=== PATIENT | male | born 1935 | race Caucasian/White ===

== ENCOUNTER → 2018-06-25 | Day surgery (SDC) | payer MEDICARE, OTHER ==
[~2018-06-25] VITALS: Ht 170.1 cm; Wt 78.0 kg
[~2018-06-25] MED LIST: BAYER ASPIRIN C81 MG PO
--- NOTE | ~2018-06-25 | O ---
[place], [place] OPERATIVE NOTE NAME: [id number] UNIT #: [id number] ROOM: DOCTOR: DEBRA SOLORIO MD BIRTHDATE: 37 DOS: 06/25/2018 PREOPERATIVE DIAGNOSIS: Cataract, left eye. POSTOPERATIVE DIAGNOSIS: Cataract, left eye. OPERATION: Extracapsular cataract extraction by phacoemulsification with posterior chamber intraocular lens implantation, left eye. ANESTHESIA: Monitored standby. OPERATIVE FINDINGS AND PROCEDURE: 2% Xylocaine topical anesthetic gel was applied to the eye in the preop area. The patient was taken to the operating room and prepped and draped in the standard fashion for sterile intraocular surgery. A time out procedure was performed verifying correct patient, correct site and corrects lens with John Solorio M.D. The operating microscope was swung into position and the lid speculum was inserted. Using a Kaylynn paracentesis blade, a paracentesis was made through clear cornea. Viscoelastic was used to fill the anterior chamber. Using a metal keratome a 2.4 mm self-sealing clear corneal cataract incision was made temporally at the limbus. Using a pre-bent 25 gauge cystotome needle, a standard continuous curvilinear capsulorrhexis was performed. The anterior capsule was removed with forceps. The lens nucleus was hydrodissected and phacoemulsified in the posterior chamber. Cortical material was removed with the irrigation aspiration hand piece and the posterior capsule was then polished with a curet under irrigation. The posterior chamber and capsular bag were filled with viscoelastic. A posterior chamber intraocular lens manufactured by: [employer], Model #[id number], and 21.5 diopters in strength were then inserted into the posterior chamber and within the capsular bag using the lens cartridge and injector system. Viscoelastic was removed using the irrigation aspiration handpiece. The anterior chamber was filled with balanced salt solution through the paracentesis. Both the paracentesis site and cataract incisions were hydrated with BSS and verified to be water-tight and self-sealing. Cefuroxime 1 mg/0.1 mL was injected into the anterior chamber through the paracentesis site. The incision checked to be water-tight using a Weck-Danita sponge. The integrity of the cataract wound and ocular tension were checked. Lid speculum and drapes were removed. The patient was transferred from the operating room to the recovery room in satisfactory condition. [place], [place] OPERATIVE NOTE NAME: NATALI HARRIS UNIT #: [id number] ROOM: DOCTOR: DEBRA SOLORIO MD BIRTHDATE: [birth year] DEBRA SOLORIO MD CM:OPRECORD:OPERATIVE NOTE [id number] DEBRA SOLORIO MD 06/25/18 1242 interface
[2018-06-25 11:00] VITALS: BP 140/73
[2018-06-25 12:21] VITALS: BP 140/73
[2018-06-25 12:35] VITALS: BP 136/65
[2018-06-25 12:45] VITALS: BP 141/69
== END | disposition home or self-care (01) ==
LOC: SDC 06-23 13:15
DX: H25.812 Combined forms of age-related cataract, left eye (principal); Z86.73 Personal history of transient ischemic attack (TIA), and cerebral infarction without residual deficits; Z87.891 Personal history of nicotine dependence; Z98.890 Other specified postprocedural states; Z79.82 Long term (current) use of aspirin

== ENCOUNTER → 2018-07-02 | Day surgery (SDC) | payer MEDICARE, OTHER ==
[~2018-07-02] VITALS: Ht 170.1 cm; Wt 78.5 kg
--- NOTE | ~2018-07-02 | O ---
[place], [place] OPERATIVE NOTE NAME: NAT[facility]I [facility]IS [facility] [id number] UNIT #: [id number] ROOM: DOCTOR: DEBRA SOLORIO MD BIRTHDATE: [birth year] DOS: 07/02/2018 PREOPERATIVE DIAGNOSIS: Cataract, right eye. POSTOPERATIVE DIAGNOSIS: Cataract, right eye. OPERATION: Extracapsular cataract extraction by phacoemulsification with posterior chamber intraocular lens implantation, right eye. ANESTHESIA: Monitored standby. OPERATIVE FINDINGS AND PROCEDURE: 2% Xylocaine topical anesthetic gel was applied to the eye in the preop area. The patient was taken to the operating room and prepped and draped in the standard fashion for sterile intraocular surgery. A time out procedure was performed verifying correct patient, correct site and corrects lens with John Solorio M.D. The operating microscope was swung into position and the lid speculum was inserted. Using a Kaylynn paracentesis blade, a paracentesis was made through clear cornea. Viscoelastic was used to fill the anterior chamber. Using a metal keratome a 2.4 mm self-sealing clear corneal cataract incision was made temporally at the limbus. Using a pre-bent 25 gauge cystotome needle, a standard continuous curvilinear capsulorrhexis was performed. The anterior capsule was removed with forceps. The lens nucleus was hydrodissected and phacoemulsified in the posterior chamber. Cortical material was removed with the irrigation aspiration hand piece and the posterior capsule was then polished with a curet under irrigation. The posterior chamber and capsular bag were filled with viscoelastic. A posterior chamber intraocular lens manufactured by: [employer], Model #[id number], and 21.0 diopters in strength were then inserted into the posterior chamber and within the capsular bag using the lens cartridge and injector system. Viscoelastic was removed using the irrigation aspiration handpiece. The anterior chamber was filled with balanced salt solution through the paracentesis. Both the paracentesis site and cataract incisions were hydrated with BSS and verified to be water-tight and self-sealing. Cefuroxime 1 mg/0.1 mL was injected into the anterior chamber through the paracentesis site. The incision checked to be water-tight using a Weck-Danita sponge. The integrity of the cataract wound and ocular tension were checked. Lid speculum and drapes were removed. The patient was transferred from the operating room to the recovery room in satisfactory condition. [place], [place] OPERATIVE NOTE NAME: NATALI HARRIS UNIT #: [id number] ROOM: DOCTOR: DEBRA SOLORIO MD BIRTHDATE: [birth year] DEBRA SOLORIO MD CM:OPRECORD:OPERATIVE NOTE [id number] DEBRA SOLORIO MD 07/02/18 1140 interface
[2018-07-02 08:50] VITALS: BP 127/65
[2018-07-02 10:19] VITALS: BP 136/74
[2018-07-02 10:35] VITALS: BP 133/77
[2018-07-02 10:45] VITALS: BP 118/67
== END | disposition home or self-care (01) ==
LOC: SDC 07-01 11:45
DX: H25.811 Combined forms of age-related cataract, right eye (principal); Z98.42 Cataract extraction status, left eye; Z96.1 Presence of intraocular lens; Z86.73 Personal history of transient ischemic attack (TIA), and cerebral infarction without residual deficits; Z98.890 Other specified postprocedural states; Z79.82 Long term (current) use of aspirin

== ENCOUNTER 2020-02-21 16:22 | Emergency (ER) | payer MEDICARE, OTHER ==
[~2020-02-21] VITALS: Ht 172.7 cm; Wt 77.1 kg
[2020-02-21 17:43] LABS: ALBUMIN 3.4 gm/dl (3.1-4.5); ALKALINE PHOSPHATASE 95 U/L (45-117); BUN 24 mg/dl (7-24); CHLORIDE 106 mmol/L (98-107); CREATININE 1.17 mg/dL (0.70-1.30); HEMATOCRIT 45.5 % (42.0-52.0); MEAN CELL VOLUME 89.7 fl (80.0-94.0); MEAN CORPUSCULAR HGB 28.6 pg (27.0-31.0); MEAN CORPUSCULAR HGB CONC 31.9 g/dl (33.0-37.0); MEAN PLATELET VOLUME 9.9 fl (9.6-12.3); PLATELET COUNT AUTOMATED 228 10*3/uL (130-400); POTASSIUM 4.3 mmol/L (3.5-5.1); RED BLOOD COUNT 5.07 10*6/uL (4.50-5.90); RED CELL DISTRI WIDTH 14.4 % (0-14.5); SGOT/AST 11 IU/L (3-35); SGPT/ALT 18 U/L (12-78); SODIUM 138 mmol/L (136-145); TOTAL PROTEIN 8.1 gm/dL (6.4-8.2); WHITE BLOOD COUNT 9.8 10*3/uL (4.8-10.8)
[2020-02-21 17:44] LABS: TROPONIN I < 0.015 ng/ml (<0.045)
[2020-02-21 18:03] LABS: BASOPHILS 1 % (0-1); PLATELET SUFFICIENCY NORMAL (NORMAL); TOTAL CELLS COUNTED 100 #CELLS
== END 2020-02-21 18:50 | disposition home or self-care (01) ==
LOC: ED 16:22
PROVIDERS: Nurse Practitioner Family
DX: M54.9 Dorsalgia, unspecified (principal); Z79.82 Long term (current) use of aspirin

== ENCOUNTER 2021-06-07 11:20 | Emergency (ER) | payer MEDICARE ==
[2021-06-07] MEDS ORDERED: FLOMAX0.4 MG PO (15:27)
== END 2021-06-07 16:43 | disposition home or self-care (01) ==
LOC: ED 11:20
DX: R33.9 Retention of urine, unspecified (principal)

== ENCOUNTER 2021-06-15 07:12 | Emergency (ER) | payer MEDICARE ==
[~2021-06-15] VITALS: Ht 170.1 cm; Wt 70.8 kg
[~2021-06-15 07:12] MED LIST changes: +FLOMAX0.4 MG PO
== END 2021-06-15 08:47 | disposition home or self-care (01) ==
LOC: ED 07:12
DX: R33.9 Retention of urine, unspecified (principal)

== ENCOUNTER 2021-06-20 22:03 | Emergency (ER) | payer MEDICARE ==
[~2021-06-20] VITALS: Ht 170.1 cm; Wt 71.2 kg
[2021-06-21 00:11] LABS: BILIRUBIN Negative (Negative); BLOOD 3+ (Negative); CLARITY Cloudy (Clear); COLOR Yellow (Yellow); GLUCOSE Negative (Negative); KETONE Negative (Negative); LEUKO ESTERASE Negative (Negative); NITRITE Negative (Negative); SPECIFIC GRAVITY 1.015 (1.001-1.030); UROBILINOGEN 0.2 E.U./dl (0.0-1.0)
[2021-06-21 00:22] LABS: URIC ACID CRYSTALS 2+
[2021-06-21 00:23] LABS: RBC 41-50 rbc/hpf (0-2)
== END 2021-06-21 01:24 | disposition home or self-care (01) ==
LOC: ED 22:03
PROVIDERS: Emergency Medicine
DX: T83.098A Other mechanical complication of other urinary catheter, initial encounter (principal); Y92.89 Other specified places as the place of occurrence of the external cause

== ENCOUNTER 2024-01-27 18:47 | Inpatient (IN) | payer MEDICARE ==
[2024-01-27] VITALS: BP 121/53
[~2024-01-27] VITALS: Ht 167.6 cm; Wt 78.6 kg
[~2024-01-27 18:47] MED LIST changes: +OMNICEF300 MG PO; +PHARMASSURE V500 MCG PO; +TAMSULOSIN HCL0.4 MG PO; +VITAMIN D350 MCG PO; +ZITHROMAX250 MG PO
[2024-01-27 18:56] VITALS: BP 142/64
[2024-01-27 20:00] VITALS: BP 121/53
[2024-01-27] MEDS ORDERED: Ipratropium Brom3 ML INH (21:00)
[2024-01-27] MEDS ORDERED: Lidocaine Hydrochloride 10 ML SYR UR ONE (22:05)
[2024-01-27 22:25] LABS: BILIRUBIN Negative (Negative); BLOOD 3+ (Negative); CLARITY Cloudy (Clear); COLOR Yellow (Yellow); GLUCOSE Negative (Negative); KETONE Negative (Negative); LEUKO ESTERASE Trace (Negative); NITRITE Negative (Negative)
[2024-01-27] MEDS ORDERED: LEVOFLOXACIN 150 ML IV ONE (22:25)
[2024-01-27 22:51] LABS: RBC 41-50 rbc/hpf (0-2); URIC ACID CRYSTALS 1+
[2024-01-27 22:52] LABS: BACTERIA TRACE; WBC 16-20 wbc/hpf (0-5)
[2024-01-27] MEDS ORDERED: SODIUM CHLORIDE 0.9% 1,000 ML IV ONE (22:55)
[2024-01-27 23:21] LABS: HEMATOCRIT 34.4 % (42.0-52.0); MEAN CELL VOLUME 84.9 fl (80.0-94.0); MEAN CORPUSCULAR HGB 26.9 pg (27.0-31.0); MEAN CORPUSCULAR HGB CONC 31.7 g/dl (33.0-37.0); MEAN PLATELET VOLUME 9.4 fl (9.6-12.3); PLATELET COUNT AUTOMATED 373 10*3/uL (130-400); RED BLOOD COUNT 4.05 10*6/uL (4.50-5.90); RED CELL DISTRI WIDTH 14.8 % (0-14.5); WHITE BLOOD COUNT 20.3 10*3/uL (4.8-10.8)
[2024-01-27 23:39] LABS: MANUAL DIFF REFLEX YES
[2024-01-27 23:48] LABS: PLATELET SUFFICIENCY NORMAL (NORMAL); TOTAL CELLS COUNTED 100 #CELLS
[2024-01-28] VITALS (9 sets, daily range): BP systolic 103–133; BP diastolic 53–66
[2024-01-28] MEDS ORDERED: LEVOFLOXACIN 150 ML IV ONE
[2024-01-28] MEDS ORDERED: BISACODYL 5 MG TAB PO PRN (02:05)
[2024-01-28] MEDS ORDERED: ACETAMINOPHEN 325 MG TAB PO PRN (02:05)
[2024-01-28] MEDS ORDERED: Magnesium Hydroxide 30 ML UDC PO PRN (02:05)
[2024-01-28] MEDS ORDERED: ACETAMINOPHEN 650 MG SUPP R PRN (02:05)
[2024-01-28] MEDS ORDERED: BISACODYL 10 MG SUPP R PRN (02:05)
[2024-01-28] MEDS ORDERED: Ondansetron Hydrochloride 4 MG/2 ML VIAL IV PRN (02:05)
[2024-01-28] MEDS ORDERED: SODIUM CHLORIDE 0.9% 1,000 ML IV ONE (02:10)
[2024-01-28] MEDS ORDERED: Vancomycin Hydrochloride 1,000 MG in SODIUM CHLORIDE 0.9% 250 ML IV SCH (02:10)
[2024-01-28] MEDS ORDERED: DEXTROSE IV ONE (02:25)
[2024-01-28] MEDS ORDERED: TAZOBACTAM IV ONE (02:25)
[2024-01-28] MEDS ORDERED: PIPERACILLIN IV ONE (02:25)
[2024-01-28] MEDS ORDERED: Albuterol Sulf/Ipratropium 3 ML VIAL NEB PRN (02:30)
[2024-01-28] MEDS ORDERED: VANCOMYCIN HCL 1,500 MG in SODIUM CHLORIDE 0.9% 500 ML IV ONE (04:00)
[2024-01-28] MEDS ORDERED: Piperacillin Sodium/Tazobact 50 ML IV ONE (04:07)
[2024-01-28 06:33] LABS: HEMATOCRIT 29.9 % (42.0-52.0); MEAN CELL VOLUME 84.7 fl (80.0-94.0); MEAN CORPUSCULAR HGB 26.9 pg (27.0-31.0); MEAN CORPUSCULAR HGB CONC 31.8 g/dl (33.0-37.0); MEAN PLATELET VOLUME 9.2 fl (9.6-12.3); PLATELET COUNT AUTOMATED 306 10*3/uL (130-400); RED BLOOD COUNT 3.53 10*6/uL (4.50-5.90); RED CELL DISTRI WIDTH 15.1 % (0-14.5); WHITE BLOOD COUNT 15.5 10*3/uL (4.8-10.8)
[2024-01-28 06:37] LABS: MANUAL DIFF REFLEX YES
[2024-01-28 07:07] LABS: ALKALINE PHOSPHATASE 191 U/L (46-116); BUN 31 mg/dl (9-23); CHLORIDE 110 mmol/L (98-107); POTASSIUM 3.7 mmol/L (3.4-5.1); SGPT/ALT 40 U/L (5-49); TOTAL PROTEIN 4.9 gm/dL (6.0-8.0)
[2024-01-28 07:40] LABS: TOTAL CELLS COUNTED 100 #CELLS
[2024-01-28 07:41] LABS: PLATELET SUFFICIENCY NORMAL (NORMAL)
[2024-01-28] MEDS ORDERED: Vancomycin Hydrochloride 500 MG VIAL IV ONE (09:06)
[2024-01-28] MEDS ORDERED: SODIUM CHLORIDE 0.9% 500 ML BAG IV ONE (09:06)
[2024-01-28] MEDS ORDERED: Vancomycin Hydrochloride 1,000 MG VIAL IV ONE (09:06)
[2024-01-28] MEDS ORDERED: Enoxaparin Sodium 40 MG/0.4 ML SYR SC SCH (10:00)
[2024-01-28] MEDS ORDERED: CYANOCOBALAMIN 500 MCG TAB PO SCH (10:00)
[2024-01-28] MEDS ORDERED: Tamsulosin Hydrochloride 0.4 MG CAP PO SCH (10:00)
[2024-01-28] MEDS ORDERED: Cholecalciferol 2,000 UNIT TABLET (50 MCG) PO SCH (10:00)
[2024-01-28] MEDS ORDERED: Piperacillin Sodium/Tazobact 50 ML IV SCH (10:00)
[2024-01-28] MEDS ORDERED: BARIUM SULFATE 98% 340 GM BOT PO ONE ×2 (12:40→12:57)
[2024-01-29] VITALS: BP 127/52
[2024-01-29] MEDS ORDERED: HEEL PROTECTOR DEVICE ONE (03:23)
[2024-01-29] MEDS ORDERED: CHAIR CUSHION DEVICE ONE (03:23)
[2024-01-29] MEDS ORDERED: FOAM BANDAGE 1 EACH BANDAGE T ONE (03:23)
[2024-01-29] MEDS ORDERED: Vancomycin Hydrochloride 1,000 MG in SODIUM CHLORIDE 0.9% 250 ML IV SCH (06:00)
[2024-01-29 06:14] LABS: BUN 27 mg/dl (9-23); CHLORIDE 110 mmol/L (98-107); POTASSIUM 3.9 mmol/L (3.4-5.1)
[2024-01-29 06:21] LABS: HEMATOCRIT 33.4 % (42.0-52.0); MEAN CORPUSCULAR HGB 27.1 pg (27.0-31.0); MEAN CORPUSCULAR HGB CONC 31.1 g/dl (33.0-37.0); MEAN PLATELET VOLUME 9.3 fl (9.6-12.3); RED BLOOD COUNT 3.84 10*6/uL (4.50-5.90); RED CELL DISTRI WIDTH 15.2 % (0-14.5); WHITE BLOOD COUNT 19.3 10*3/uL (4.8-10.8)
[2024-01-29 06:32] LABS: MANUAL DIFF REFLEX YES
[2024-01-29 07:04] LABS: PLATELET COUNT AUTOMATED 413 10*3/uL (130-400)
[2024-01-29 07:24] LABS: TOTAL CELLS COUNTED 100 #CELLS
[2024-01-29 07:25] LABS: BURR CELLS FEW; PLATELET SUFFICIENCY HIGH (NORMAL)
[2024-01-29 08:00] VITALS: BP 128/55
[2024-01-29] MEDS ORDERED: ASPIRIN, CHEWABLE 81 MG TAB PO SCH (10:00)
[2024-01-29 12:00] VITALS: BP 123/50
[2024-01-29 16:00] VITALS: BP 122/52
[2024-01-29 20:00] VITALS: BP 128/70
[2024-01-30] VITALS: BP 121/53
[2024-01-30] MEDS ORDERED: LEVOFLOXACIN 150 ML IV SCH
[2024-01-30 05:37] LABS: BUN 27 mg/dl (9-23); CHLORIDE 107 mmol/L (98-107); POTASSIUM 3.6 mmol/L (3.4-5.1)
[2024-01-30 06:02] LABS: HEMATOCRIT 30.1 % (42.0-52.0); MEAN CELL VOLUME 84.3 fl (80.0-94.0); MEAN CORPUSCULAR HGB 26.9 pg (27.0-31.0); MEAN CORPUSCULAR HGB CONC 31.9 g/dl (33.0-37.0); MEAN PLATELET VOLUME 9.3 fl (9.6-12.3); PLATELET COUNT AUTOMATED 385 10*3/uL (130-400); RED BLOOD COUNT 3.57 10*6/uL (4.50-5.90); RED CELL DISTRI WIDTH 15.1 % (0-14.5); WHITE BLOOD COUNT 17.5 10*3/uL (4.8-10.8)
[2024-01-30 06:07] LABS: MANUAL DIFF REFLEX YES
[2024-01-30 06:54] LABS: PLATELET SUFFICIENCY NORMAL (NORMAL); STOMATOCYTE FEW; TOTAL CELLS COUNTED 100 #CELLS
[2024-01-30 08:00] VITALS: BP 116/56
[2024-01-30 16:00] VITALS: BP 110/44
[2024-01-30 20:00] VITALS: BP 110/55
[2024-01-31] VITALS: BP 109/52
[2024-01-31 06:12] LABS: BUN 28 mg/dl (9-23); CHLORIDE 108 mmol/L (98-107); HEMATOCRIT 31.3 % (42.0-52.0); MEAN CELL VOLUME 86.7 fl (80.0-94.0); MEAN CORPUSCULAR HGB 26.3 pg (27.0-31.0); MEAN CORPUSCULAR HGB CONC 30.4 g/dl (33.0-37.0); MEAN PLATELET VOLUME 9.2 fl (9.6-12.3); PLATELET COUNT AUTOMATED 398 10*3/uL (130-400); POTASSIUM 3.6 mmol/L (3.4-5.1); RED BLOOD COUNT 3.61 10*6/uL (4.50-5.90); WHITE BLOOD COUNT 15.3 10*3/uL (4.8-10.8)
[2024-01-31 06:30] LABS: MANUAL DIFF REFLEX YES
[2024-01-31 07:59] LABS: ATYPICAL LYMPHS 1 % (0-0); PLATELET SUFFICIENCY NORMAL (NORMAL); TOTAL CELLS COUNTED 100 #CELLS
[2024-01-31 08:00] VITALS: BP 160/82
[2024-01-31 12:00] VITALS: BP 138/64
[2024-01-31] MEDS ORDERED: Piperacillin Sodium/Tazobact 50 ML IV SCH (14:00)
[2024-01-31 16:00] VITALS: BP 120/64
[2024-01-31] MEDS ORDERED: VANCOMYCIN/WATER FOR INJ (PEG) 250 ML IV SCH (18:00)
[2024-01-31 20:00] VITALS: BP 109/51
[2024-02-01] VITALS: BP 119/60
[2024-02-01 08:00] VITALS: BP 126/50
[2024-02-01 09:52] LABS: HEMATOCRIT 30.4 % (42.0-52.0); MEAN CELL VOLUME 85.9 fl (80.0-94.0); MEAN CORPUSCULAR HGB 26.3 pg (27.0-31.0); MEAN CORPUSCULAR HGB CONC 30.6 g/dl (33.0-37.0); MEAN PLATELET VOLUME 8.8 fl (9.6-12.3); PLATELET COUNT AUTOMATED 386 10*3/uL (130-400); RED BLOOD COUNT 3.54 10*6/uL (4.50-5.90); RED CELL DISTRI WIDTH 14.9 % (0-14.5); WHITE BLOOD COUNT 16.1 10*3/uL (4.8-10.8)
[2024-02-01 10:24] LABS: MANUAL DIFF REFLEX YES
[2024-02-01 10:25] LABS: BUN 26 mg/dl (9-23); CHLORIDE 105 mmol/L (98-107); POTASSIUM 3.9 mmol/L (3.4-5.1)
[2024-02-01 10:52] LABS: PLATELET SUFFICIENCY NORMAL (NORMAL); TOTAL CELLS COUNTED 100 #CELLS
[2024-02-01 10:53] LABS: BURR CELLS FEW; POLYCHROMASIA SLIGHT; SPHEROCYTES FEW
[2024-02-01 12:00] VITALS: BP 124/66
[2024-02-01 16:00] VITALS: BP 123/55
[2024-02-01 20:00] VITALS: BP 132/66
[2024-02-01 22:00] VITALS: BP 132/66
[2024-02-02 05:55] LABS: BUN 22 mg/dl (9-23); CHLORIDE 106 mmol/L (98-107); POTASSIUM 3.7 mmol/L (3.4-5.1)
[2024-02-02 06:10] LABS: HEMATOCRIT 31.7 % (42.0-52.0); MEAN CELL VOLUME 85.9 fl (80.0-94.0); MEAN CORPUSCULAR HGB 26.6 pg (27.0-31.0); MEAN CORPUSCULAR HGB CONC 30.9 g/dl (33.0-37.0); MEAN PLATELET VOLUME 8.8 fl (9.6-12.3); PLATELET COUNT AUTOMATED 396 10*3/uL (130-400); RED BLOOD COUNT 3.69 10*6/uL (4.50-5.90); RED CELL DISTRI WIDTH 15.1 % (0-14.5); WHITE BLOOD COUNT 14.7 10*3/uL (4.8-10.8)
[2024-02-02 06:20] LABS: MANUAL DIFF REFLEX YES
[2024-02-02 06:45] LABS: PLATELET SUFFICIENCY NORMAL (NORMAL); TOTAL CELLS COUNTED 100 #CELLS
[2024-02-02 06:46] LABS: ACANTHOCYTES FEW; BURR CELLS FEW
[2024-02-02 08:00] VITALS: BP 131/65
[2024-02-02 12:00] VITALS: BP 126/78
[2024-02-02 16:00] VITALS: BP 123/60
[2024-02-02 20:00] VITALS: BP 125/59
[2024-02-03] VITALS: BP 126/59
[2024-02-03 06:45] LABS: HEMATOCRIT 29.7 % (42.0-52.0); MANUAL DIFF REFLEX YES; MEAN CELL VOLUME 85.8 fl (80.0-94.0); MEAN CORPUSCULAR HGB 26.9 pg (27.0-31.0); MEAN CORPUSCULAR HGB CONC 31.3 g/dl (33.0-37.0); MEAN PLATELET VOLUME 9.1 fl (9.6-12.3); PLATELET COUNT AUTOMATED 417 10*3/uL (130-400); RED BLOOD COUNT 3.46 10*6/uL (4.50-5.90); RED CELL DISTRI WIDTH 15.3 % (0-14.5); WHITE BLOOD COUNT 18.6 10*3/uL (4.8-10.8)
[2024-02-03 06:49] LABS: BUN 23 mg/dl (9-23); CHLORIDE 105 mmol/L (98-107); POTASSIUM 3.7 mmol/L (3.4-5.1)
[2024-02-03 07:34] LABS: TOTAL CELLS COUNTED 100 #CELLS
[2024-02-03 07:35] LABS: BURR CELLS MODERATE; OVALOCYTES FEW; PLATELET SUFFICIENCY HIGH (NORMAL); POLYCHROMASIA SLIGHT; ROULEAUX SLIGHT
[2024-02-03 08:00] VITALS: BP 143/84
[2024-02-03 12:00] VITALS: BP 148/78
[2024-02-03 16:00] VITALS: BP 122/61
[2024-02-03] MEDS ORDERED: FOAM BANDAGE HEEL T ONE (17:49)
[2024-02-03] MEDS ORDERED: FOAM BANDAGE 1 EACH BANDAGE T ONE (17:49)
[2024-02-03 20:00] VITALS: BP 133/59
[2024-02-04] VITALS: BP 120/58
[2024-02-04 08:00] VITALS: BP 137/65
[2024-02-04 12:00] VITALS: BP 116/52
[2024-02-04 16:00] VITALS: BP 124/50
[2024-02-04] MEDS ORDERED: Piperacillin Sodium/Tazobact 50 ML IV SCH (18:00)
[2024-02-04 20:00] VITALS: BP 121/57
[2024-02-05] VITALS: BP 118/65
[2024-02-05 06:01] LABS: BUN 22 mg/dl (9-23); CHLORIDE 106 mmol/L (98-107); POTASSIUM 3.6 mmol/L (3.4-5.1)
[2024-02-05 06:31] LABS: MEAN CELL VOLUME 85.8 fl (80.0-94.0); MEAN CORPUSCULAR HGB 26.9 pg (27.0-31.0); MEAN CORPUSCULAR HGB CONC 31.4 g/dl (33.0-37.0); PLATELET COUNT AUTOMATED 368 10*3/uL (130-400); RED BLOOD COUNT 3.38 10*6/uL (4.50-5.90); RED CELL DISTRI WIDTH 15.3 % (0-14.5); WHITE BLOOD COUNT 15.8 10*3/uL (4.8-10.8)
[2024-02-05 06:32] LABS: MANUAL DIFF REFLEX YES
[2024-02-05 07:08] LABS: BURR CELLS MODERATE; OVALOCYTES FEW; POLYCHROMASIA SLIGHT; TOTAL CELLS COUNTED 100 #CELLS
[2024-02-05 07:09] LABS: PLATELET SUFFICIENCY NORMAL (NORMAL); ROULEAUX SLIGHT
[2024-02-05 08:00] VITALS: BP 114/55
[2024-02-05] MEDS ORDERED: MORPHINE Sulfate 2 MG/ML SYR IV ONE (10:40)
[2024-02-05] MEDS ORDERED: MORPHINE Sulfate 2 MG/ML SYR IV PRN (11:00)
[2024-02-05 12:00] VITALS: BP 112/52
== END 2024-02-05 16:46 | disposition hospice, inpatient (51) | DRG 871 ==
LOC: ED 18:47 → EDHOLD 01-28 01:40 → 4E 01-28 01:40
PROVIDERS: Internal Medicine; Registered Nurse; Student in an Organized Health Care Education/Training Program; ADMIT Family Medicine; ATTEND Family Medicine
PROC: BD15YZZ Fluoroscopy of Upper GI using Other Contrast (ICD-10-PCS; principal; 2024-01-28)
DX: A41.9 Sepsis, unspecified organism (principal); E43 Unspecified severe protein-calorie malnutrition; J15.69 Pneumonia due to other Gram-negative bacteria; J96.01 Acute respiratory failure with hypoxia; N17.9 Acute kidney failure, unspecified; N13.8 Other obstructive and reflux uropathy; D64.9 Anemia, unspecified; R80.9 Proteinuria, unspecified; R33.9 Retention of urine, unspecified; R53.81 Other malaise; Z66 Do not resuscitate; N40.1 Benign prostatic hyperplasia with lower urinary tract symptoms; R33.8 Other retention of urine; E55.9 Vitamin D deficiency, unspecified; Z80.3 Family history of malignant neoplasm of breast; Z86.73 Personal history of transient ischemic attack (TIA), and cerebral infarction without residual deficits; Z71.89 Other specified counseling; Z68.27 Body mass index [BMI] 27.0-27.9, adult; Z51.5 Encounter for palliative care

== ENCOUNTER 2024-02-05 16:46 | Inpatient (IN) | payer OTHER ==
[~2024-02-05 16:46] MED LIST changes: +Ipratropium Brom3 ML INH
[2024-02-05] MEDS ORDERED: LORazepam 2 MG TAB PO PRN (18:00)
[2024-02-05] MEDS ORDERED: MORPHINE Sulfate 2 MG/ML SYR IV PRN (18:05)
[2024-02-05] MEDS ORDERED: MORPHINE Sulfate 50 MG in SODIUM CHLORIDE 0.9% 45 ML IV SCH (18:30)
[2024-02-05 20:00] VITALS: BP 136/74
[2024-02-05] MEDS ORDERED: ATROPINE SULFATE 1% 2 ML BOTTLE SL SCH (20:00)
[2024-02-06] MEDS ORDERED: FOAM BANDAGE 1 EACH BANDAGE T ONE (03:36)
[2024-02-06] MEDS ORDERED: SODIUM CHLORIDE 0.9% 500 ML IV SCH (07:25)
[2024-02-06 08:00] VITALS: BP 125/68
[2024-02-06 20:00] VITALS: BP 102/54
[2024-02-07] VITALS: BP 119/55
[2024-02-07 08:00] VITALS: BP 106/50
[2024-02-07] MEDS ORDERED: LORazepam 2 MG TAB SL PRN (10:26)
[2024-02-07] MEDS ORDERED: LORazepam 1 MG TAB PO PRN (11:50)
[2024-02-07 16:00] VITALS: BP 115/58
[2024-02-07 20:00] VITALS: BP 112/53
[2024-02-08] MEDS ORDERED: ACETAMINOPHEN 650 MG SUPP R PRN (07:45)
[2024-02-08 08:00] VITALS: BP 101/48
[2024-02-08] MEDS ORDERED: ATROPINE SULFATE 1% 2 ML BOTTLE OPH ONE (09:32)
[2024-02-08 16:00] VITALS: BP 90/56
[2024-02-08] MEDS ORDERED: MORPHINE Sulfate 100 MG in SODIUM CHLORIDE 0.9% 90 ML IV SCH (16:30)
== END 2024-02-08 17:52 | DRG 871 ==
LOC: 4E 16:46
PROVIDERS: ADMIT Family Medicine; ATTEND Family Medicine
DX: A41.50 Gram-negative sepsis, unspecified (principal); E43 Unspecified severe protein-calorie malnutrition; J18.9 Pneumonia, unspecified organism; Z51.5 Encounter for palliative care; Z68.27 Body mass index [BMI] 27.0-27.9, adult